=== PATIENT | female | born 1950 | race Hispanic/Latino ===

== ENCOUNTER 2017-01-06 06:26 | Day surgery (SDC) | payer OTHER ==
[2017-01-03 10:33] VITALS: BMI 29.2
[2017-01-06] MEDS ORDERED: Lidocaine 2% Inj (20ml) ONE (07:19)
[2017-01-06] MEDS ORDERED: EPINEPHrine 1 mg/ml (1:1000) Inj ONE (07:19)
[2017-01-06] MEDS ORDERED: Midazolam 2 MG/2 ML VIAL ONE (07:21)
[2017-01-06] MEDS ORDERED: Propofol 10 mg/ml Inj (20 ML) ONE (07:21)
--- NOTE | 2017-01-06 08:34 | PCM.SURG1 ---
Surgeon's Initial Post Op Note - Surgeon's Notes Surgeon: dylan Lock Tender: none Type of Anesthesia: General IV Anesthesia Administered By: anasthesiologist Pre-Operative Diagnosis: RUL mass Operative Findings: no endobronchial lesions Post-Operative Diagnosis: RUL mass Operation Performed: bronchoscopy Specimen/Specimens Removed: brush and forcep bx. RUL. bronchial washings Estimated Blood Loss: EBL {In ML}: 1 Blood Products Given: N/A Drains Used: No Drains Post-Op Condition: Good Date of Surgery/Procedure: 01/06/17 Time of Surgery/Procedure: 07:45
[2017-01-06] MEDS ORDERED: Albuterol 0.083% Inhal Sol (2.5 mg/3 mL) UD ONE (08:39)
[2017-01-06] MEDS ORDERED: Albuterol 0.083% Inhal Sol (2.5 mg/3 mL) UD INH ONE (08:46)
[2017-01-06] MEDS ORDERED: Lactated Ringer's 1,000 ML IV SCH (09:00)
[2017-01-06] MEDS ORDERED: HYDROmorphone 0.5 mg/0.5 ml ISec IVP PRN (09:14)
[2017-01-06] MEDS ORDERED: HYDROmorphone 0.5 mg/0.5 ml ISec ONE (09:18)
--- NOTE | 2017-01-06 09:36 | RAD ---
PROCEDURE: CHEST RADIOGRAPH, 1 VIEW HISTORY: post op bronch r/o pnuemo COMPARISON: 12/07/2016 FINDINGS: LUNGS: The prior since I projecting over the right suspicious for subsequent CT chest shows denser consolidation landing right hilar oft tissue fullness. Minimal interval right costophrenic angle reticular opacity suggested . PLEURA: No pneumothorax or pleural fluid seen. CARDIOVASCULAR: Mild cardiomegaly OSSEOUS STRUCTURES: No significant abnormalities. VISUALIZED UPPER ABDOMEN: Normal. OTHER FINDINGS: None. IMPRESSION: Status post right bronchoscopy for right lung consolidation worrisome for malignancy. No pneumothorax. Other findings as above
[2017-01-06 10:22] VITALS: O2SAT 95
[2017-01-06 11:44] VITALS: BP 118/54; PULSE 70; RESP 15; TEMP 97.2
--- NOTE | 2017-01-07 07:22 | BRONCH ---
PROCEDURE DATE: 01/06/2017 The patient is a 66-year-old female who underwent fiberoptic bronchoscopy with direct laryngoscopy. PREOPERATIVE DIAGNOSIS: Right upper lobe mass. POSTOPERATIVE DIAGNOSIS: Right upper lobe mass. PROCEDURE: Fiberoptic bronchoscopy with direct laryngoscopy performed via right naris. The patient was intubated with an 8.5 endotracheal tube prior to initiation of the procedure due to i nitial intolerance of sedation by a bronchoscopy mask. Vocal cords were intact. Upper airway was cl ear. There were no endobronchial lesions identified in neither the left or right bronchial tree. Th e deondre was sharp and under fluoroscopic guidance, transbronchial brushing and forcep biopsies were performed from the right upper lobe. There was minimal bleeding post-biopsies. 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 The patient tolerated the procedure well, was returned to post-anesthesia care unit in stable condition. After recovery, the patient will be discharged to home, and will followup in the office in 3-4 days f or results of biopsy. Devan Callejas MD cc: [id number] TT: 01/06/2017 11:00:09 jn 01/06/2017 12:13:59
--- NOTE | 2017-01-07 09:46 | RAD ---
PROCEDURE: Fluoroscopy up to 1 hr. HISTORY: RIGHT UPPER LUNG MASS COMPARISON: None TECHNIQUE: Standard protocol for this study/examination. FINDINGS: Submitted images from the current procedure: 7.0. Total fluoroscopic time (continuous mode) utilized during the procedure: 65.7 seconds. IMPRESSION: Less than 1 hr fluoroscopic time utilized during performance of the procedure.
== END 2017-01-06 11:34 | disposition home or self-care (01) ==
LOC: C.SDS 06:26
PROVIDERS: ATTEND Internal Medicine Pulmonary Disease
DX: R91.8 Other nonspecific abnormal finding of lung field (principal)
CPT/HCPCS: 31623; 71010; 87070; 87101; 87116; 87206; 88104 ×2; 88305 ×2; J0171; J1170; J2250; J2704; J3010

== ENCOUNTER 2017-01-18 09:32 | Day surgery (SDC) | payer OTHER ==
[2017-01-03 10:31] VITALS: BMI 29.2
[2017-01-18] MEDS ORDERED: Midazolam 2 MG/2 ML VIAL ONE (11:03)
--- NOTE | 2017-01-18 11:33 | CP.SDSHP ---
Same Day Surgery H & P - History Proposed Procedure: CT guided lung mass biopsy. Pre-Op Diagnosis: Lung mass - Allergies Allergies: Allergies No Known Allergies Allergy (Verified 01/22/16 21:43) - Physical Exam Vital Signs: Vital Signs 01/18/17 10:23 Temperature 97.6 F Pulse Rate 59 L Respiratory 20 Rate Blood Pressure 123/63 O2 Sat by Pulse 96 Oximetry Mental Status: Alert & Oriented x3 Neuro: WNL Heart: WNL Lungs: WNL - Impression Impression: Pt with right lung mass. Plan CT guided core biopsy. Informed consent obtained and risk of PTX requiring a chest tube was explained to the patient. Pt. Evaluated Today:Candidate for Anesthesia & Procedure: Yes (ASA 3 Malampati 2) - Date & Time Date: 01/18/17 Time: 11:00 Short Stay Discharge - Short Stay Discharge Admitting Diagnosis/Reason for Visit: RUL MASS Disposition: HOME/ ROUTINE
--- NOTE | 2017-01-18 11:39 | PCM.SURG1 ---
Surgeon's Initial Post Op Note - Surgeon's Notes Surgeon: Jere Lauren MD Pencil Inspector: None Type of Anesthesia: IV Sedation Pre-Operative Diagnosis: Right lung mass Operative Findings: Right lung mass and surrounding atelecasis. Post-Operative Diagnosis: Right lung mass Operation Performed: CT guided right lung mass biopsy. Specimen/Specimens Removed: 20 g core x 3 Estimated Blood Loss: EBL {In ML}: 0 Blood Products Given: N/A Drains Used: No Drains Post-Op Condition: Good Date of Surgery/Procedure: 01/18/17 Time of Surgery/Procedure: 11:30
[2017-01-18 12:05] VITALS: RESP 16
[2017-01-18 13:55] VITALS: BP 61/53; PULSE 66; TEMP 97.8; O2SAT 98
--- NOTE | 2017-01-18 15:17 | CT ---
PROCEDURE: Date of procedure: 01/18/2017 Procedure: 1. CT-guided lung mass biopsy, CPT [address] Guidance for biopsy, [address] Medications: The patient was sedated by anesthesiologist along with physiologic monitoring. HISTORY: Right upper lobe lung nodule TECHNIQUE: Following informed consent, the Pt's chest was marked. The Pt was placed prone on the CT table and procedure time out was performed. A noncontrast CT scan was performed. Noncontrast CT scan confirmed the presence of a peripheral 4 cm with surrounding areas of consolidation. A skin localizer was placed on the patient's right back and a repeat CT scan was performed. The skin was marked, prepped, and draped in the usual sterile fashion. After the skin was anesthetized with lidocaine and the patient sedated by the anesthesiologist, a 20 gauge core needle was advanced percutaneously under direct CT guidance into the mass. Upon confirmation of needle position, three 20-gauge core specimens were obtained and sent for routine pathology. The needle was removed and a xeroform dressing was applied. A post biopsy CT scan showed no pneumothorax. IMPRESSION: CT guided core biopsy right lung mass.
--- NOTE | 2017-01-18 16:13 | RAD ---
PROCEDURE: CHEST RADIOGRAPH, 1 VIEW. Technique: Single view portable semi erect @ with 13:30. HISTORY: Status post right lung mass COMPARISON: 01/06/2017. Relevant interventional procedure(s): Right upper lobe lung biopsy January 18, 2017. FINDINGS: LUNGS: Stable mass/infiltrate right upper lobe. PLEURA: No pneumothorax or pleural fluid seen. CARDIOVASCULAR: Normal. OSSEOUS STRUCTURES: No significant abnormalities. VISUALIZED UPPER ABDOMEN: Normal. OTHER FINDINGS: None. IMPRESSION: No adverse findings/no pneumothorax following CT directed biopsy right upper lobe mass January 18, 2017.
== END 2017-01-18 14:05 | disposition home or self-care (01) ==
LOC: C.SPRAD 09:32
PROVIDERS: ATTEND Radiology Vascular & Interventional Radiology
DX: R91.8 Other nonspecific abnormal finding of lung field (principal)
CPT/HCPCS: 32405; 71010; 77012; 88305; J2250; J3010